=== PATIENT | male | born 2000 | race Two or more races ===

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

== ENCOUNTER 2025-04-08 15:13 | Outpatient (REF) | payer MEDICAID, SELFPAY ==
--- OUTSIDE RECORDS SUMMARY | 2025-04-08 14:30 | XMS_ITS | Encounter Summary ---
Author Organization [employer] Address [address] [facility] [address] [place] [address] Care Team Providers Care Machine Learning Intern Name Role Phone Esteban Oneal MD Primary Care Prov ider Encounter Details Date Type Department Care Team ([facility] st Contact Info) Description 04/08/2025 2:30 PM EDT Office Visit [facility] MED & PEDS [address] [facility] [place], [place] [phone] Esteban Oneal MD [address] [place], [place] [phone] Encounter for medical examination to establish care (Primary Dx) Social History Tobacco Use Types Packs/Day Years Used Date Smoking Tobacco: Never Smokeless Tobacco: Never Tobacco Cessation:Counseling Given: Not Answered Alcohol Use Standard Drinks/Week Comments Never 0 (1 standard drink = 0.6 oz pur e alcohol) Sex and Gender Information Value Date Recorded Sex Assigned at Male 05/15/2022 10:25 AM EDT Legal Sex Male 10:25 AM EDT Gender Identity Male 12/11/2024 1:43 PM EDT Sexual Orientation Straight 12/11/2024 1: 43 PM EDT documented as of this encounter Last Filed Vital Signs Vital Sign Reading Time Taken Comments Blood Pressure 116/73 04/08/2025 2:47 PM EDT Pulse 94 04/08/2025 2:47 PM EDT Temperature 36.3 C (97.3 F) 04/08/2025 2:47 PM EDT Respiratory Rate 20 04/08/2025 2:47 PM EDT Oxygen Saturation - - Inhaled Oxygen Concentration - - Weight 49.7 kg (109 lb 9.6 oz) 04/08/2025 2:47 P M EDT Height 166.4 cm (5' 5.5 ) 04/08/2025 2:47 PM EDT Body Mass Index 17.96 04/08/2025 2:47 PM EDT documented in this encounter Progress Notes * Esteban Boogie MD - 04/08/2025 2:30 PM EDT Subjective Patient ID: Burton Villa is a 24 y.o. male who presents for No chief complaint on file.. HPI Patient was scheduled for a televisit to establish medical care Review of Systems Constitutional: Negative for chills, fatigue and fever. Respiratory: Negative for cough and shortness of breath. Cardiovascular: Negative for chest pain and palpitations. Objective Physical Exam Constitutional: Appearance: Normal appearance. HENT: Right Ear: Tympanic membrane, ear canal and external ear normal. There is no impacted cerumen. Left Ear: Tympanic membrane, ear canal and external ear normal. There is no impacted cerumen. Cardiovascular: Rate and Rhythm: Normal rate and regular rhythm. Heart sounds: No murmur heard. Pulmonary: Effort: Pulmonary effort is normal. No respiratory distress. Breath sounds: No stridor. No wheezing or rhonchi. Abdominal: General: Abdomen is flat. There is no distension. Palpations: There is no mass. Tenderness: There is no abdominal tenderness. There is no guarding or rebound. Hernia: No hernia is present. Musculoskeletal: General: No swelling or tenderness. Normal range of motion. Cervical back: Normal range of motion. No rigidity or tenderness. Lymphadenopathy: Cervical: No cervical adenopathy. Skin: General: Skin is warm. Coloration: Skin is not jaundiced or pale. Neurological: General: No focal deficit present. Mental Status: He is alert and oriented to person, place, and time. Psychiatric: Mood and Affect: Mood normal. Behavior: Behavior normal. Assessment/Plan Problem List Items Addressed This Visit Encounter for medical examination to establish care - Primary Last pcp visit 6 months ago ER: - Hospitalization: 2022 due to behavioral issues PMHx: anxiety, adhd Pshx: right arm skin laceration 2015 All: ibuprofen (vomits/rash) Meds: - Relevant Orders CBC auto differential Comprehensive Metabolic Panel Lipid Panel, Standard TSH W/Reflex to FT4 HIV-1/2 Antigen and Antibodies, Fourth Generation, with Reflexes Hepatitis C Antibody with Reflex to HCV, RNA, Quantitative, Real-Time PCR Chlamydia/N. Gonorrhoeae RNA, TMA, Vaginal Syphilis Screen documented in this encounter Miscellaneous Notes * Assessment & Plan Note - Esteban Boogie MD - 04/08/2025 2:56 PM EDTAssociated Problem(s): Encounter for medical examination to establish care Last pcp visit 6 months ago ER: - Hospitalization: 2022 due to behavioral issues PMHx: anxiety, adhd Pshx: right arm skin laceration 2015 All: ibuprofen (vomits/rash) Meds: - documented in this encounter Plan of Treatment Scheduled Orders Name Type Priority Associated Diagnoses Orde r Schedule CBC auto differential Lab Routine Encounter for medical examination to establish care Expected: 04/08/2025 (Approximate), Expires: 04/08/2026 Comprehensive Metabolic Panel Lab Routine Encounter for medical examination to establish care Expected: 04/08/2025 (Approximate), Expires: 04/08/2026 Lipid Panel, Standard Lab Routine Encounter for medical examination to establish care Expected: 04/08/2025 (Approximate), Expires: 04/08/2026 TSH W/Reflex to FT4 Lab Routine Encounter for medical examination to establish care Expected: 04/08/2025 (Approximate), Expires: 04/08/2026 HIV-1/2 Antigen and Antibodies, Fourth Generation, with Reflexes Lab Routine Encounter for medical examination to establish care Expected: 04/08/2025 (Approximate), Expires: 04/08/2026 Hepatitis C Antibody with Reflex to HCV, RNA, Quantitative, Real-Time PCR Lab Routine Encounter for medical examination to establish care Expected: 04/08/2025, Expires: 04/08/2026 Chlamydia/N. Gonorrhoeae RNA, TMA, Vaginal Microbiology Routine Encounter for medical examination to establish care Ordered: 04/08/2025 Syphilis Screen Lab Routine Encounter for medical examination to establish care Expected: 04/08/2025, Expires: 04/08/2026 documented as of this encounter Visit Diagnoses Diagnosis Encounter for medical examination to establish care- Primary documented in this encounter Care Teams Machine Learning Intern Relationship Specialty Start Date End Date Esteban Oneal MD [address] [place] [id number] PCP - General Internal Medicine 04/08/25 documented as of this encounter
--- OUTSIDE RECORDS SUMMARY | 2025-04-08 17:41 | XMS_ITS | Encounter Summary ---
Author Organization [employer] Address [address] [facility] 7[address] [place] [address] Care Team Providers Care Slitter And Cutter Operator Name Role Phone Esteban Oneal MD Primary Care Prov ider Encounter Details Date Type Department Care Team (Latest Contact Info) Description 04/08/2025 Travel Social History Tobacco Use Types Packs/Day Years Used Date Smoking Tobacco: Never Smokeless Tobacco: Never Alcohol Use Standard Drinks/Week Comments Never 0 (1 standard drink = 0.6 oz pur e alcohol) Sex and Gender Information Value Date Recorded Sex Assigned at Male 05/15/2022 10:25 AM EDT Legal Sex Male 10:25 AM EDT Gender Identity Male 12/11/2024 1:43 PM EDT Sexual Orientation Straight 12/11/2024 1: 43 PM EDT documented as of this encounter Plan of Treatment Not on file documented as of this encounter Visit Diagnoses Not on filedocumented in this encounter Care Teams Slitter And Cutter Operator Relationship Specialty Start Date End Date Esteban Oneal MD [address] [facility] [place] [address] PCP - General Internal Medicine 04/08/25 documented as of this encounter
--- OUTSIDE RECORDS SUMMARY | 2025-04-08 17:41 | XMS_ITS | Clinical Summary ---
Author Organization [facility] Address [address] [place] [address] Care Team Providers Care Senior Asset Manager Name Role Phone Unavailable Primary Care Provider Unavailabl e Social History Tobacco Use Types Packs/Day Years Used Date Smoking Tobacco: Never Assessed Sex and Gender Information Value Date Recorded Sex Assigned at Not on file Legal Sex Male 2:27 AM EST Gender Identity Not on file Sexual Orientation Not on file Plan of Treatment Health Maintenance Due Date Last Done Comments HPV Vaccines (1 - Male 3-dos e series) 2017 Meningococcal B Vaccine (1 o f 2 - Standard) 2018 DTaP,Tdap,and Td Vaccines (1 - Tdap) 2021 Hepatitis B Vaccines (1 of 3 - 19+ 3-dose series) 2021 Depression Screening 07/16/2024 COVID-19 Vaccine (1 - 2023-2 5 season) 2025 Influenza Vaccine (#1) 2025 HIB Vaccines Aged Out No longer eligi ble based on patient's age to complete this topic Hepatitis A Vaccines Aged Out No long er eligible based on patient's age to complete this topic IPV Vaccines Aged Out No longer eligi ble based on patient's age to complete this topic MMR Vaccines Aged Out No longer eligi ble based on patient's age to complete this topic Meningococcal ACWY Vaccine Aged Out N o longer eligible based on patient's age to complete this topic Pneumococcal Vaccine: Pediat rics (0 to 5 Years) and At-Risk Patients (6 to 49 Years) Aged Out No longer eligible b ased on patient's age to complete this topic RSV Immunization Patients Un marge 20 months Aged Out No longer eligible b ased on patient's age to complete this topic Varicella Vaccines Aged Out No longer eligible based on patient's age to complete this topic
--- OUTSIDE RECORDS SUMMARY | 2025-04-08 17:41 | XMS_ITS | Clinical Summary ---
Author Organization [facility] Address [address] [place] [address] Care Team Providers Care Building Construction Supervisor Name Role Phone Unavailable Primary Care Provider Unavailabl e Source Comments PLEASE NOTE, if this patient is a minor, it may be UNLAWFUL to discuss sensitive information that is contained in these records (such as FAMILY PLANNING, MENTAL HEALTH or SUBSTANCE ABUSE) with the minor patient's parent or other person without the patient's specific authorization.[facility] Medications fluoride, sodium, (DENTAGEL) 1.1 % gel Place in mouth once daily Use twice daily while toothbrushin g. Use instead of regular tooth paste. SPIT. DO NOT SWALLOW. 56 g 10/05/2017 Active Social History Tobacco Use Types Packs/Day Years Used Date Smoking Tobacco: Never Assessed Social Connections Answer Date Recorded Social Connections and Isolation 0 10/23/2023 Financial Resource Strain Answer Date R ecorded Financial Resource Strain 0 2023 Stress Answer Date Recorded Stress 0 10/23/2023 Physical Activity Answer Date Recorded Physical Activity 0 10/23/2023 Food Insecurity Answer Date Recorded Food 0 10/23/2023 Transportation Needs Answer Date Record ed Transportation 0 10/23/2023 Housing Stability Answer Date Recorded Housing 0 10/23/2023 Safety and Environment Answer Date Dinesh rded Safety 0 10/23/2023 Utilities Answer Date Recorded Utilities 0 10/23/2023 Employment Answer Date Recorded Employment 0 10/23/2023 Sex and Gender Information Value Date Recorded Sex Assigned at Not on file Legal Sex Male 8:09 AM PDT Gender Identity Not on file Sexual Orientation Not on file Plan of Treatment Not on file Insurance [place] MEDICAID [facility] [place] [address]
--- OUTSIDE RECORDS SUMMARY | 2025-04-08 17:41 | XMS_ITS | Clinical Summary ---
Author Organization [employer] Address [address] [facility] 7t [place] [address] Care Team Providers Care Gear Shaper Set Up Operator Name Role Phone Esteban Oneal MD Primary Care Prov ider Allergies Active Allergy Reactions Criticality Noted Date Comments Ibuprofen Vomiting 12/11/2024 Polka dots Medications No known medications Active Problems Problem Noted Date Diagnosed Date Encounter for medical examination to establish c are 04/08/2025 Assessment & Plan (04/08/2025 2:56 PM EDT): Last pcp visit 6 months ago ER: - Hospitalization: 2022 due to behavioral issues PMHx: anxiety, adhd Pshx: right arm skin laceration 2015 All: ibuprofen (vomits/rash) Meds: - Encounters Date Type Department Care Team Description 04/08/2025 2:30 PM EDT Office Visit [facility] MED & PEDS [address] [place] [address] Esteban Oneal MD Encounter for medical examination to establish care (Primary Dx) 04/08/2025 Travel 04/07/2025 Telephone [facility] P[facility]S [address] [facility] [place] [address] Esteban Oneal MD chart prep 01/12/2025 Telephone [facility] MEDICINE [address] [place] [address] Eduar Painting MD New Patient appt. from Last 3 Months Family History Medical History Relation Name Comments No Known Problems Father No Known Problems Mother Cancer Neg Hx Relation Name Status Comments Father Mother Social History Tobacco Use Types Packs/Day Years [...] Orientation Straight 12/11/2024 1: 43 PM EDT Last Filed Vital Signs Vital Sign Reading Time Taken Comments Blood Pressure 116/73 04/08/2025 2:47 PM EDT Pulse 94 04/08/2025 2:47 PM EDT Temperature 36.3 C (97.3 F) 04/08/2025 2:47 PM EDT Respiratory Rate 20 04/08/2025 2:47 PM EDT Oxygen Saturation 98% 12/11/2024 3:38 PM EDT Inhaled Oxygen Concentration - - Weight 49.7 kg (109 lb 9.6 oz) 04/08/2025 2:47 P M EDT Height 166.4 cm (5' 5.5 ) 04/08/2025 2:47 PM EDT Body Mass Index 17.96 04/08/2025 2:47 PM EDT Plan of Treatment Health Maintenance Due Date Last Done Comments Chlamydia and Gonorrhea Screening 2002 Depression Screening 2002 HIV Screening 2002 SDOH Screening 2002 Alcohol/Substance Use Screening 2014 Family Planning (PISQ) 2017 HPV Vaccines (1 - Male 3-dos e series) 2017 Meningococcal B Vaccine (1 o f 2 - Standard) 2018 Hepatitis C Screening 2020 DTaP/Tdap/Td Vaccines (1 - Tdap) 2021 Hepatitis B Vaccines (1 of 3 - 19+ 3-dose series) 2021 COVID-19 Vaccine (1 - 2023-2 5 season) 2025 Influenza Vaccine (#1) 2025 Disability Screening 04/08/2026 04/08/2025 Tobacco Screening 04/08/2026 04/08/2025 Zoster Vaccines (1 of 2) 2052 RSV Patients and Pa tients Aged 60 years or older (1 - 1-dose 75+ series) 2077 HIB Vaccines Aged Out No longer eligi ble based on patient's age to complete this topic Hepatitis A Vaccines Aged Out No long er eligible based on patient's age to complete this topic IPV Vaccines Aged Out No longer eligi ble based on patient's age to complete this topic Meningococcal Vaccine Aged Out No leon michelle eligible based on patient's age to complete this topic Pneumococcal Vaccine: Pediat rics (0 to 5 Years) and At-Risk Patients (6 to 49) Years Aged Out No longer eligi ble based on patient's age to complete this topic RSV under 20 months Aged Out No longe r eligible based on patient's age to complete this topic Rotavirus Vaccines Aged Out No longer eligible based on patient's age to complete this [place] [address] [facility] [address] [place] [id number] [place] [address] [place] [address] Care Teams Gear Shaper Set Up Operator Relationship Specialty Start Date End Date Esteban Oneal MD [address] [place] [id number] PCP - General Internal Medicine 04/08/25
--- OUTSIDE RECORDS SUMMARY | 2025-04-08 17:41 | XMS_ITS | Encounter Summary ---
Author Organization [employer] Address [address] [facility] 7t [place] [address] Care Team Providers Care Financial Service Professional Name Role Phone Unavailable Primary Care Provider Unavailabl e Reason for Visit * Reason Onset Date Comments chart prep 04/07/2025 Encounter Details Date Type Department Care Team ([facility] st Contact Info) Description 04/07/2025 Telephone [facility] MED [facility]EDS [address] [facility] [place] [address] Esteban Oneal MD [address] [place] [address] chart prep Social History Tobacco Use Types Packs/Day Years Used Date Smoking Tobacco: Never Assessed Sex and Gender Information Value Date Recorded Sex Assigned at Male 05/15/2022 10:25 AM EDT Legal Sex Male 10:25 AM EDT Gender Identity Male 12/11/2024 1:43 PM EDT Sexual Orientation Straight 12/11/2024 1: 43 PM EDT documented as of this encounter Miscellaneous Notes * Telephone Encounter - Leigha Altamirano MA - 04/07/2025 4:18 PM EDT Chart Prep Labs: not done Images: not applicable Referrals: not applicable Vaccines due: Covid, Flu, Tdap, Hep B, MCV4, and HPV Screenings: not applicable Overdue care gaps: PHQ, SDOH, DISABILITY SCREENING, SBIRT documented in this encounter Plan of Treatment Not on file documented as of this encounter Visit Diagnoses Not on filedocumented in this encounter
[2025-04-08 18:17] LABS: Mean Corpuscular HGB Conc 34.2 g/dl (31.0-36.0); NRBC Abs Auto 0.000 X10*3/uL (0.0-0.012); NRBC Pct Auto 0.0 /100WBC (0.0-0.2); SCAN SMEAR FLAG 1
[2025-04-08 18:20] LABS: Hematocrit 44.8 % (42.0-52.0); Hemoglobin 15.3 g/dl (14.0-18.0); Imm Gran Abs Auto 0.01 X10*3/uL (0.00-0.03); Imm Gran Pct Auto 0.1 % (0.0-0.4); Lymphocytes Absolute Auto 2.6 X10*3/uL (1.2-4.9); MANUAL DIFF FLAG SCAN; Mean Corpuscular Hemoglobin 28.9 pg (27.0-33.0); Mean Corpuscular Volume 84.7 fL (80.0-98.0); PLT CLUMP 1; Red Blood Count 5.29 X10*6/uL (4.60-5.80)
[2025-04-08 18:21] LABS: PLT ABN DIST 1
[2025-04-08 18:55] LABS: Alanine Aminotransferase 237 U/L (0-40); Albumin Level 5.1 g/dL (3.5-5.0); Alkaline Phosphatase 67 U/L (39-117); Anion Gap 13 (12-20); Aspartate Amino Transferase 84 U/L (5-37); Blood Urea Nitrogen 16 mg/dL (9-16); Calcium 10.1 mg/dL (8.4-10.2); Carbon Dioxide 30 mmol/L (22-29); Chloride 101 mmol/L (96-108); Cholesterol 172 mg/dL (<200); Estimated Glomerular Filt Rate > 60; HDL Cholesterol 45 mg/dL (>40); Potassium 4.0 mmol/L (3.3-5.1); Sodium 140 mmol/L (135-145); Total Protein 7.9 g/dL (6.5-8.0); Triglycerides 71 mg/dL (<150)
[2025-04-08 19:11] LABS: White Blood Count 7.6 X10*3/uL (4.8-10.8)
[2025-04-08 19:12] LABS: Platelet Count 137 X10*3/uL (160-400)
[2025-04-09 03:52] LABS: Syphilis Screen Nonreactive (Nonreactive)
[2025-04-09 04:53] LABS: HIV Num 1 0.05 S/CO (0.00-0.99); ~HepC Num1 0.09 S/CO (0.00-0.79); ~Hepatitis C Antibody Nonreactive (Nonreactive)
== END 2025-04-08 15:14 | disposition home or self-care (01) ==
LOC: HO.CHCLDS 15:13
PROVIDERS: Visit Provider Internal Medicine
DX: Z00.00 Encounter for general adult medical examination without abnormal findings (principal); Z11.3 Encounter for screening for infections with a predominantly sexual mode of transmission; Z11.4 Encounter for screening for human immunodeficiency virus [HIV]; Z11.59 Encounter for screening for other viral diseases
CPT/HCPCS: 36415; 80053; 80061; 84443; 85025; 86780; 86803; 87389